=== PATIENT | female | born 1970 | race Caucasian/White ===

== ENCOUNTER 2021-09-22 10:15 | Inpatient (IN) | payer OTHER ==
[~2021-09-22] VITALS: Ht 162.6 cm; Wt 99.8 kg
[2021-09-22] MEDS ORDERED: LOTREL 5-10 MG1 CAP PO (10:48)
[2021-09-22] MEDS ORDERED: METOLAZONE5 MG PO (10:48)
[2021-09-24] MEDS ORDERED: HUMIRA(CF)40 MG/0.1 (08:07)
[2021-09-24] MEDS ORDERED: AMLODIPINE-BEN1 EAC4 (08:07)
[2021-09-24] MEDS ORDERED: AZITHROMYCIN500 MG (08:08)
== END 2021-09-25 14:42 | DRG 743 ==
LOC: OB/GYN 09-23 05:52 → O/R 09-23 05:52 → SURH 09-23 06:00 → OB/GYN 09-23 10:20
PROVIDERS: ADMIT Obstetrics & Gynecology; ATTEND Obstetrics & Gynecology
PROC: 0UT70ZZ Resection of Bilateral Fallopian Tubes, Open Approach (ICD-10-PCS; 2021-09-23)
PROC: 0UT20ZZ Resection of Bilateral Ovaries, Open Approach (ICD-10-PCS; 2021-09-23)
PROC: 0UT90ZZ Resection of Uterus, Open Approach (ICD-10-PCS; principal; 2021-09-23 06:00)
DX: D25.1 Intramural leiomyoma of uterus (principal); N72 Inflammatory disease of cervix uteri; Z20.822 Contact with and (suspected) exposure to COVID-19